=== PATIENT | male | born 1980 | race Caucasian/White ===

== ENCOUNTER → 2020-04-30 11:00 | Outpatient (BNVA) | payer OTHER, SELFPAY | PROVIDERS: Family Provider Family Medicine; PCP Family Medicine; Visit Provider Family Medicine | DX: Z13.1 Encounter for screening for diabetes mellitus (principal); Z83.3 Family history of diabetes mellitus; Z13.220 Encounter for screening for lipoid disorders; Z13.6 Encounter for screening for cardiovascular disorders; Z23 Encounter for immunization | CPT/HCPCS: 80053; 80061; 83036 ==

== ENCOUNTER 2020-06-13 08:27 | Outpatient (RCR) | payer OTHER, SELFPAY | END 2020-06-25 23:59 | disposition home or self-care (01) | LOC: SPT 08:27 | PROVIDERS: PCP Family Medicine; Visit Provider Family Medicine | DX: M54.32 Sciatica, left side (principal) | CPT/HCPCS: 97110; 97161 ==

== ENCOUNTER 2020-06-26 06:00 | Outpatient (RCR) | payer OTHER, SELFPAY | END 2020-07-11 14:42 | disposition home or self-care (01) | LOC: SPT 06:00 | PROVIDERS: PCP Family Medicine; Visit Provider Family Medicine | DX: M54.32 Sciatica, left side (principal); M79.18 Myalgia, other site | CPT/HCPCS: 97110 ==

== ENCOUNTER → 2021-05-28 17:35 | Outpatient (BNVA) | payer OTHER, SELFPAY | PROVIDERS: PCP Family Medicine; Visit Provider Nurse Practitioner | DX: Z20.822 Contact with and (suspected) exposure to COVID-19 (principal) | CPT/HCPCS: 87635 ==

== ENCOUNTER 2021-09-13 14:16 | Outpatient (CLI) | payer OTHER, SELFPAY ==
[2021-09-13 15:31] LABS: Alanine Aminotransferase 22 U/L (0-41); Albumin Level 4.8 g/dL (3.5-5.2); Alkaline Phosphatase 58 IU/L (40-130); Anion Gap 15.9 (5-19); Aspartate Amino Transferase 21 U/L (0-40); Blood Urea Nitrogen 9 mg/dL (6-20); Calcium 9.4 mg/dL (8.5-10.5); Carbon Dioxide 27 mmol/L (22-29); Chloride 102 mmol/L (98-107); Chol HDL Ratio 6.48 mg/dL (1.0-5.00); Cholesterol 272 mg/dL (0-200); Globulin 2.8 g/dL (1.3-4.6); Glomerular Filtration Rate 81.9 mL/min (90-130); Glucose 82 mg/dL (65-115); HDL Cholesterol 42 mg/dL (60-100); LDL Cholesterol Calculated 173 mg/dL (50-129); LDL HDL Ratio 4.12 RATIO (0.00-3.22); Osmolality Calculated 290 mOsm/kg (285-295); Potassium 3.9 mmol/L (3.5-5.1); Sodium 141 mmol/L (136-145); Total Bilirubin 0.4 mg/dL (0.15-1.2); Total Protein 7.6 g/dL (6.6-8.7); Triglycerides 287 mg/dL (0-150)
== END 2021-09-13 14:17 | disposition home or self-care (01) ==
PROVIDERS: PCP Family Medicine; Visit Provider Family Medicine
DX: E78.2 Mixed hyperlipidemia (principal); I10 Essential (primary) hypertension
CPT/HCPCS: 80053; 80061

== ENCOUNTER → 2021-12-13 18:12 | Outpatient (BNVA) | payer OTHER, SELFPAY | PROVIDERS: PCP Family Medicine; Visit Provider Registered Nurse Neonatal Intensive Care | DX: M79.671 Pain in right foot (principal); M79.89 Other specified soft tissue disorders | CPT/HCPCS: 73630 ==

== ENCOUNTER 2023-02-09 15:00 | Outpatient (CLI) | payer OTHER, SELFPAY | END 2023-02-09 15:01 | disposition home or self-care (01) | LOC: SLEEP 02-10 09:38 | PROVIDERS: PCP Family Medicine; Visit Provider Family Medicine | DX: R06.83 Snoring (principal); R53.83 Other fatigue; G47.33 Obstructive sleep apnea (adult) (pediatric) | CPT/HCPCS: 80048; 80061; G0399 ==

== ENCOUNTER → 2024-02-18 08:41 | Outpatient (BNVA) | payer OTHER, SELFPAY | PROVIDERS: PCP Family Medicine; Visit Provider Family Medicine | DX: I10 Essential (primary) hypertension (principal); E78.2 Mixed hyperlipidemia; R73.03 Prediabetes | CPT/HCPCS: 80053; 80061; 83036 ==

== ENCOUNTER → 2025-02-16 08:27 | Outpatient (BNVA) | payer OTHER, SELFPAY | PROVIDERS: PCP Family Medicine; Visit Provider Family Medicine | DX: I10 Essential (primary) hypertension (principal); E78.2 Mixed hyperlipidemia; R73.03 Prediabetes | CPT/HCPCS: 80048; 80061 ==

== ENCOUNTER 2025-04-25 20:11 | Emergency (ER) | payer OTHER, SELFPAY ==
[2025-04-25 20:21] VITALS: BP 167/80; PULSE 71; RESP 18; TEMP 36.5; O2SAT 98; BMI 28.8
--- NOTE | 2025-04-25 20:54 | XRR_ITS ---
PROCEDURE INFORMATION: Exam: XR Sacrum and Coccyx, 2 or More Views Exam date and time: 04/25/2025 8:55 PM Age: 45 years old Clinical indication: Pain; Lumbago; Sciatica symptoms not specified; Additional info: Left side si pain TECHNIQUE: Imaging protocol: XR of the sacrum and coccyx, 2 or more views. COMPARISON: No relevant prior studies available. FINDINGS: Bones/joints: Normal. No acute fracture. Soft tissues: Normal. XR/XR sacrum coccyx min 2V [id number] IMPRESSION: No acute findings.
--- NOTE | 2025-04-25 20:56 | W.ED.BACK ---
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 He started having difficulty with pain even after stretching. He has had a sacroiliitis on the right side in the past, however never the left side. Denies injury, trauma. He was doing repetitive movements painting. Difficult to set his left foot down due to the pain. He did feel a sensation to this area. Associated symptoms: Deny abdominal pain, chills, fever(s), nausea or vomiting Related Data Home Medications ?Medication ?Instructions ?Recorded ?Confirmed acetaminophen 500 mg tablet 500 mg PO Q6H PRN 10/01/20 02/16/25 (Tylenol Extra Strength) ibuprofen 200 mg tablet 600 mg PO Q6H PRN 10/01/20 02/16/25 Previous Rx's ?Medication ?Instructions ?Recorded valsartan 160 mg tablet 160 mg PO DAILY 90 days #90 tabs 02/16/25 methocarbamol 500 mg tablet 500 mg PO Q8H PRN muscle spasm #30 04/25/25 tabs methylprednisolone 4 mg tablets in See Rx Instructions PO .COMPLEX 04/25/25 a dose pack (Medrol (Mahin)) #21 ea Allergies Allergy/AdvReac Type Severity Reaction Status Date / Time No Known Allergies Allergy Verified 02/16/25 06:53 Review of Systems General: Reports: 10 or more systems reviewed and unremarkable except in HPI and below Const: Denies: fever(s) or chills Eyes: Denies: change in vision or blurry vision ENMT: Denies: throat pain or mouth pain Card: Denies: chest pain or palpitations Resp: Denies: dyspnea or productive cough GI: Denies: abdominal pain, nausea or vomiting : Denies: flank pain or difficulty urinating Musc: Reports: back pain and joint pain; Denies: neck pain, extremity pain, extremity swelling or joint stiffness Skin/Breast: Denies: rash or pruritus Neuro: Denies: headache(s) or numbness in extremities Psych: Denies: anxiety or depression Javi/Lymph: Denies: easy bruising or easy bleeding All/Imm: Denies: urticaria or throat swelling PFSH ED PFSH: Medical History Mixed hyperlipidemia Hypertension Social History Smoking and tobacco/nicotine status: never used tobacco/nicotine Alcohol intake: never Substance/Drug Use: never Physical Exam Const: COMMON NORMALS: no acute distress, average body habitus, patient oriented x3 and alert GENERAL APPEARANCE: cooperative HENMT: COMMON NORMALS: normocephalic and atraumatic HEAD & SCALP: normocephalic and atraumatic Eye: COMMON NORMALS: Equal, round and reactive pupils present and EOMs intact bilaterally PUPIL: Yes Equal, round and reactive pupils present Neck/C-Spine: COMMON NORMALS: full ROM, no lymphadenopathy and no JVD Lymph: LYMPHATIC: no lymphadenopathy noted Resp: COMMON NORMALS: normal respiratory effort and No retractions EFFORT & INSPECTION: Yes able to speak in complete sentences Cardio: COMMON NORMALS: no JVD, regular rate and regular rhythm RATE: regular rate RHYTHM: regular rhythm GI: COMMON NORMALS: Normal to inspection, nondistended, normoactive bowel sounds present, Soft to palpation and non-tender INSPECTION: Yes normal to inspection AUSCULTATION: Yes normoactive bowel sounds PALPATION: Yes Soft to palpation : COMMON NORMALS: Yes no CVA tenderness BLADDER/KIDNEY EXAM: Yes no CVA tenderness Back/Pelvis: COMMON NORMALS: no CVA tenderness SACROILIAC JOINTS: Yes SI joint(s) abnormal SI joint details: tender to palpation, pain elicited by compression of iliac crest maneuver and pain elicited by passive hyperextension of lower extremity SACRUM: no erythema, no swelling and No sacral edema Extremity: COMMON NORMALS: normal to inspection and capillary refill normal; negative for full ROM (due to pain) GENERAL: Yes normal exam except as noted Neuro: MAULIK COMA SCALE: document GCS findings COMMON NORMALS: patient oriented x3 and CN's II-XII intact bilaterally SENSORIUM/ORIENTATION: Yes alert Psych: COMMON NORMALS: mental status grossly normal, Normal thought process present, cooperative, normal affect and speech normal SPEECH: Yes normal speech THOUGHT PROCESS: Normal thought process present Course Reevaluation(s): Reevaluation #1: Patient notes some improvement after IM shots. 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 Today he had pain in his left SI joint, and could not stretch it out. This became worse. He was not able to ambulate on his left foot due to pain and weakness. He presented to the emergency room with the symptoms. On radiograph, he appears to have inflammatory changes on that left SI joint. It is read as no acute findings. He is improved after Toradol, Norflex, dexamethasone. Will send methylprednisolone and methocarbamol to the pharmacy. I went over these, and side effects of both of these with patient. Patient states understanding. Labs Radiology Impressions Sacrum and Coccyx X-Ray 04/25/25 20:54 IMPRESSION: No acute findings. All radiology interpretation(s) finalized by discharge ED provider radiology interpretation(s): inflammatory changes along left mid SI joint Discharge Plan Discharge Patient Disposition: Home Clinical Impression: Sacroiliitis Condition: Stable Prescriptions: New methocarbamol 500 mg tablet 500 mg PO Q8H PRN (Reason: muscle spasm) Qty: 30 0RF methylprednisolone [Medrol (Mahin)] 4 mg tablets,dose pack See Rx Instructions .ROUTE .COMPLEX Qty: 21 0RF Rx Instructions: for 6 days No Action acetaminophen [Tylenol Extra Strength] 500 mg tablet 500 mg PO Q6H PRN ibuprofen 200 mg tablet 600 mg PO Q6H PRN valsartan 160 mg tablet 160 mg PO DAILY 90 Days Qty: 90 3RF Discharge Orders: Discharge ED (Routine); Ordered 04/25/25 Ordered By: Fabiana Lowe Referrals: lIana Lewis MD [Primary Care Provider, Family Practice] Discharge Diet: Usual diet Discharge Activity: Limit activity as instructed Patient Instructions: Sacroiliitis (ED), Patient Portal & Kristen Instructions Activity Restrictions/Additional Instructions: No lifting over 1 gallon of milk. No pulling, pushing, painting until pain resolves Take medication as directed. Caution on side effect of sleepiness with methocarbamol Return to ED for worsening pain, fever, weakness, numbness to the groin, incontinence of urine, feces, or retention of urine or feces. Is important to follow-up with your primary care physician regarding today's visit. Tylenol and ibuprofen can still be utilized starting tomorrow for pain. Print Language: Singaporean Coding Level of Care Code ED Retirement Benefits Specialist for Feliz Benton
[2025-04-25] MEDS: orphenadrine 30 mg/mL Inj 2 mL 60 MG IM (21:10)
[2025-04-25 22:41] VITALS: BP 157/90; PULSE 88; RESP 18; O2SAT 92
== END 2025-04-25 22:41 | disposition home or self-care (01) ==
PROVIDERS: Emergency Provider Physician Assistant; PCP Family Medicine
DX: M46.1 Sacroiliitis, not elsewhere classified (principal); E78.2 Mixed hyperlipidemia; I10 Essential (primary) hypertension
CPT/HCPCS: 72220; 96372; 99284; J1100; J1885; J2360